=== PATIENT | male | born 1945 ===

== ENCOUNTER → 2018-04-14 13:25 | Outpatient (REF) | payer MEDICARE, SELFPAY ==
[2018-04-14 14:34] LABS: Cholesterol 145 mg/dL (140-199); HDL Cholesterol 54 mg/dL (40-60); LDL Cholesterol Calculated 71 mg/dL (<100); Triglycerides 99 mg/dL (35-150)
== END ==
LOC: LAB 13:25
PROVIDERS: Visit Provider Family Medicine
DX: Z13.6 Encounter for screening for cardiovascular disorders (principal); Z13.1 Encounter for screening for diabetes mellitus
CPT/HCPCS: 36415; 80061